=== PATIENT | female | born 1980 | race American Indian/Alaskan Native ===

== ENCOUNTER 2018-11-20 17:45 | Emergency (ER) | payer BC ==
--- NOTE | 2018-11-20 18:00 | Emergency Department Report ---
Blank Doc - Documentation Documentation: 38 y.o. female presents with abdominal cramping and nausea x 2-3 days. Last b owel movement 8 days ago. Patient states she feel constipated. There is nausea without vomiting. Report pain to rectal area without bleeding. Labs and CT of abdomen ordered Fast Track for evaluation
[2018-11-20 18:15] LABS: Basophils # (Auto) 0.1 K/mm3 (0.0-0.1); Eosinophils # (Auto) 0.2 K/mm3 (0.0-0.4); Hematocrit 34.1 % (30.3-42.9); Lymphocytes # (Auto) 2.8 K/mm3 (1.2-5.4); Lymphocytes % (Auto) 38.1 % (13.4-35.0); Mean Corpuscular HGB Conc 32 % (30-34); Mean Corpuscular Volume 88 fl (79-97); Monocytes # (Auto) 0.7 K/mm3 (0.0-0.8); Monocytes % (Auto) 9.5 % (0.0-7.3); Platelet Count 278 K/mm3 (140-440); Red Blood Count 3.89 M/mm3 (3.65-5.03); Red Cell Distribution Width 18.2 % (13.2-15.2)
[2018-11-20 18:35] LABS: Alanine Aminotransferase 17 units/L (7-56); Albumin 4.1 g/dL (3.9-5); BUN/Creatinine Ratio 13; Blood Urea Nitrogen 12 mg/dL (7-17); Calcium 8.8 mg/dL (8.4-10.2); Hemolysis Index 3
--- NOTE | 2018-11-20 19:44 | Cat Scan Report ---
FINAL REPORT PROCEDURE: CT ABDOMEN PELVIS WO CON TECHNIQUE: Computerized axial tomography of the abdomen and pelvis was performed without intravenous contrast. This study is performed without intravascular contrast material and its sensitivity for ab dominal and pelvic pathology, including neoplasms, inflammation, abscess, free fluid, thrombosis, art erial dissection and infarction, is reduced compared with a contrast enhanced study. HISTORY: abdominal pain r/o obstruction COMPARISON: No prior studies are available for comparison. FINDINGS: Lower Lung cole: No sinificant abnormality seen. Upper Abdomen: Gallbladder is surgically absent. Unenhanced images the liver show no focal abnormalit ies. The adrenal glands, the pancreas and spleen are unremarkable. Kidneys, Ureters and Urinary bladder: No abnormalities are seen. No evidence of hydronephrosis renal mass or calculi. No ureteral calculi are seen. Urinary bladder is unremarkable. Calcifications are se en in the lower pelvis which appear to represent phleboliths. Retroperitoneum: Abdominal aorta appears normal. Nonspecific subcentimeter lymph nodes are seen in the retroperitoneum. No pathologically enlarged lym ph nodes are identified. Bowel: Minimal diverticulosis seen left side of the colon without evidence of diverticulitis. No evid ence of bowel obstruction ascites or free intraperitoneal gas. Normal-appearing appendix is seen in t he right lower quadrant. Reproductive organs: Uterus and adnexa are unremarkable. Other: No acute bony abnormalities are seen IMPRESSION: Prior cholecystectomy. Minimal colonic diverticulosis without evidence of diverticulitis. No evidence of bowel obstruction. No acute abnormalities are identified..
--- NOTE | 2018-11-20 21:24 | Emergency Department Report ---
ED Abdominal Pain HPI - General Chief Complaint: Rectal Pain Stated Complaint: 8DAYS NO BOWEL MOVEMENT Time Seen by Provider: 11/20/18 17:55 Source: patient Mode of arrival: Ambulatory Limitations: No Limitations - History of Present Illness Initial Comments: 38-year-old -[place] female this emergency department complaining of abdominal pain for the last 2-3 days associated with some nausea but no vomiting. She reports being constipated for the last 8 days extracted a laxity of a couple days ago with minimal improvement. She has been able to pass gas. Reports no hemoptysis, hematemesis, no hematochezia. No fever, chills, sweats, chest pain, palpitations. MD Complaint: abdominal pain Location: diffuse Radiation: none Migration to: no migration Severity: mild Severity scale (0 -10): 8 Quality: dull Consistency: constant Improves With: nothing Worsens With: nothing Associated Symptoms: denies other symptoms, constipation - Related Data Previous Rx's Medication Instructions Recorded Last Taken Type Bisacodyl [Dulcolax suppos] 10 mg [place] QDAY #7 supp.rect 11/20/18 Unknown Rx Lactulose [Cephulac] 30 gm PO Q6HR #450 ml 11/20/18 Unknown Rx Sodium Phosphate,[place]-Dibasic 133 ml RC ONCE #1 enema 11/20/18 Unknown Rx [Fleet Enema] Allergies Allergy/AdvReac Type Severity Reaction Status Date / Time No Known Allergies Allergy Unverified 11/20/18 17:45 ED Review of Systems ROS: Stated complaint: 8DAYS NO BOWEL MOVEMENT Other details as noted in HPI Constitutional: denies: chills, fever Eyes: denies: eye pain, eye discharge, vision change ENT: denies: ear pain, throat pain Respiratory: denies: cough, shortness of breath, wheezing Cardiovascular: denies: chest pain, palpitations Endocrine: no symptoms reported Gastrointestinal: constipation. denies: abdominal pain, nausea, diarrhea Genitourinary: denies: urgency, dysuria, discharge Musculoskeletal: denies: back pain, joint swelling, arthralgia Skin: denies: rash, lesions Neurological: denies: headache, weakness, paresthesias Psychiatric: denies: anxiety, depression Hematological/Lymphatic: denies: easy bleeding, easy bruising ED Past Medical Hx - Social History Smoking Status: Current Every Day Smoker Substance Use Type: Alcohol - Medications Home Medications: Home Medications Medication Instructions Recorded Confirmed Last Taken Type Bisacodyl [Dulcolax suppos] 10 mg [place] QDAY #7 supp.rect 11/20/18 Unknown Rx Lactulose [Cephulac] 30 gm PO Q6HR #450 ml 11/20/18 Unknown Rx Sodium Phosphate,[place]-Dibasic 133 ml RC ONCE #1 enema 11/20/18 Unknown Rx [Fleet Enema] ED Physical Exam - General Limitations: No Limitations General appearance: alert, in no apparent distress - Head Head exam: Present: atraumatic, normocephalic - Eye Eye exam: Present: normal appearance, PERRL - ENT ENT exam: Present: normal exam, mucous membranes moist - Neck Neck exam: Present: normal inspection - Respiratory Respiratory exam: Present: normal lung sounds bilaterally. Absent: respiratory distress - Cardiovascular Cardiovascular Exam: Present: regular rate, normal rhythm. Absent: systolic murmur, diastolic murmur, rubs, gallop - GI/Abdominal GI/Abdominal exam: Present: soft, normal bowel sounds. Absent: distended, tenderness, guarding, rebound, bruit, pulsatile mass - Extremities Exam Extremities exam: Present: normal inspection - Back Exam Back exam: Present: normal inspection - Neurological Exam Neurological exam: Present: alert, oriented X3 - Psychiatric Psychiatric exam: Present: normal affect, normal mood - Skin Skin exam: Present: warm, dry, intact, normal color. Absent: rash ED Course Vital Signs 11/20/18 17:54 Temperature 98.4 F Pulse Rate 83 Respiratory 16 Rate Blood Pressure 149/93 O2 Sat by Pulse 100 Oximetry ED Medical Decision Making - Lab Data Result diagrams: 11/20/18 18:05 11/20/18 18:05 - Radiology Data Radiology results: report reviewed (CT scan abdomen is negative showing no obstructive processes.) - Medical Decision Making Discussed findings with Ms. Portillo of her CT scan and laboratory data. Significant constipation. Has one week ago with minimal improvement with 1 [id number] therapy. Plan is to try to resolve GI issues, multifactorial pathways to relieve the patient's symptomology. Advised follow-up with her primary care and GI within 48-72 hours, significantly to do so. Return to ER if symptoms are worsening. Critical care attestation.: If time is entered above; I have spent that time in minutes in the direct care of this critically ill patient, excluding procedure time. ED Disposition Clinical Impression: Constipation, Abdominal pain Disposition: DC-01 TO HOME OR SELFCARE Is pt being admited?: No Does the pt Need Aspirin: No Condition: Stable Instructions: Constipation (ED), High Fiber Diet (ED) Referrals: ISAIAH RICH DO [Primary Care Provider] - 3-5 Days
[2018-11-20] MEDS ORDERED: TORADOL ONE (21:25)
[2018-11-20] MEDS ORDERED: TORADOL IM ONE (21:25)
[2018-11-20 21:32] VITALS: BP 130/88
== END 2018-11-20 21:38 | disposition home or self-care (01) ==
LOC: ED 17:45
DX: K59.00 Constipation, unspecified (principal); F17.200 Nicotine dependence, unspecified, uncomplicated
CPT/HCPCS: 36415; 74176; 80053; 84703; 85025; 96372; 99283; J1885

== ENCOUNTER 2019-01-13 14:57 | Emergency (ER) | payer BC ==
[2019-01-13 15:04] VITALS: BP 172/87
[2019-01-13] MEDS ORDERED: TYLENOL PO ONE (15:06)
--- NOTE | 2019-01-13 15:09 | Emergency Department Report ---
Blank Doc - Documentation Documentation: 38 y o female presents with coughing, with uri sx states productive cough denies f/c/n/v/d/cp [facility] evaluate
--- NOTE | 2019-01-13 16:07 | XRay Report ---
PROCEDURE: XR CHEST ROUTINE 2V TECHNIQUE: PA and lateral views of the chest were obtained. HISTORY: Upper Respiratory Infection COMPARISONS: None FINDINGS: Lungs are clear. No infiltrates masses or effusions are seen. Heart size and pulmonary vasculature ap pear normal. No acute or focal bony abnormalities are identified. Surgical clips visualized right upp er quadrant. IMPRESSION: No evidence of acute cardiac pulmonary process. No infiltrates are seen.. This document is electronically signed by Eleazar Garber MD., January 13 2019 04:05:28 PM ET
[2019-01-13] MEDS ORDERED: DECADRON IM ONE (17:06)
--- NOTE | 2019-01-13 17:29 | Emergency Department Report ---
Minor Respiratory - HPI Chief Complaint: Upper Respiratory Infection Stated Complaint: EYES/NOSE/THROAT/MYERS/VOMIT BLOOD Time Seen by Provider: 01/13/19 15:05 Duration: 5 Days Pain Location: Facial, Throat, Nose, Other (EYES) Minor Respiratory: Yes Rhinorrhea, Yes Able to Tolerate Fluids, Yes Cough, Yes Shortness of Breath, No Sore Throat, No Ear Pain, No Sick Contacts, No Hemoptysis, No Chest Pain, No Fever Other History: H and believes she has allergic rhinitis however now she states she is coughing up bloody mucus and having no improvement of her symptoms despi te taking Claritin and Zyrtec ED Review of Systems ROS: Stated complaint: EYES/NOSE/THROAT/MYERS/VOMIT BLOOD Other details as noted in HPI Comment: All other systems reviewed and negative ED Past Medical Hx - Past Medical History Additional medical history: anemia - Surgical History Hx Cholecystectomy: Yes Hx Breast Surgery: Yes ([facility]) Additional Surgical History: C/Sx2, tube ligation - Social History Smoking Status: Current Every Day Smoker Substance Use Type: Alcohol - Medications Home Medications: Home Medications Medication Instructions Recorded Confirmed Last Taken Type Bisacodyl [Dulcolax suppos] 10 mg [place] QDAY #7 supp.rect 11/20/18 Unknown Rx Lactulose [Cephulac] 30 gm PO Q6HR #450 ml 11/20/18 Unknown Rx Sodium Phosphate,[place]-Dibasic 133 ml RC ONCE #1 enema 11/20/18 Unknown Rx [Fleet Enema] Olopatadine HCl [Patanol 0.1%] 1 drop OP BID #1 bottle 01/13/19 Unknown Rx Minor Respiratory Exam - Exam General: Vital signs noted. No distress. Alert and acting appropriately. HEENT: Yes Moist Mucous Membranes, Yes Conjuctival Injection, No Pharyngeal Erythema, No Pharyngeal Exudates, No Rhinorrhea, No Frontal Tenderness, No Maxillary Tenderness Ear: Neither TM Bulge, Neither TM Erythema, Neither EAC Pain, Neither EAC Discharge Neck: Yes Supple, No Adenopathy Lungs: Yes Good Air Exchange, Yes Cough, No Wheezes, No Ronchi, No Stridor, No Labored Respirations, No Retractions, No Use of Accessory Muscles, No Other Abnormal Lung Sounds Heart: Yes Regular, No Murmur Abdomen: Yes Normal Bowel Sounds, No Tenderness, No Peritoneal Signs Skin: No Rash, No Edema Neurologic: Alert and oriented, no deficits. Musculoskeletal: Unremarkable. ED Course Vital Signs 01/13/19 15:00 Temperature 98.2 F Pulse Rate 97 H Respiratory 17 Rate Blood Pressure 172/87 O2 Sat by Pulse 98 Oximetry ED Medical Decision Making - Medical Decision Making This patient is failed outpatient therapy regarding the allergic rhinitis patient will be given a Decadron shot and also prescription strength medication for her allergic conjunctivitis. Critical care attestation.: If time is entered above; I have spent that time in minutes in the direct care of this critically ill patient, excluding procedure time. ED Disposition Clinical Impression: Allergic rhinitis Qualifiers: Allergic rhinitis trigger: pollen Allergic rhinitis seasonality: seasonal Qualified Code(s): J30.1 - Allergic rhinitis due to pollen Allergic conjunctivitis Qualifiers: Laterality: bilateral Qualified Code(s): H10.13 - Acute atopic conjunctivitis, bilateral Disposition: DC- TO HOME OR SELFCARE Is pt being admited?: No Does the pt Need Aspirin: No Condition: Stable Instructions: Allergic Rhinitis (ED) Prescriptions: Olopatadine HCl [Patanol 0.1%] 1 drop OP BID #1 bottle Referrals: TRACY PALOMINO MD [Primary Care Provider] - 3-5 Days Time of Disposition: 17:29
== END 2019-01-13 17:45 | disposition home or self-care (01) ==
LOC: ED 14:57
DX: J30.1 Allergic rhinitis due to pollen (principal); H10.13 Acute atopic conjunctivitis, bilateral; F17.200 Nicotine dependence, unspecified, uncomplicated; Z90.49 Acquired absence of other specified parts of digestive tract; Z98.51 Tubal ligation status
CPT/HCPCS: 71046; 96372; 99283; J1100

== ENCOUNTER 2019-02-02 19:39 | Emergency (ER) | payer BC ==
[2019-02-02 20:42] VITALS: BP 144/99
[2019-02-02] MEDS ORDERED: TYLENOL PO ONE (23:36)
--- NOTE | 2019-02-03 01:20 | Emergency Department Report ---
ED General Adult HPI - General Chief complaint: Upper Respiratory Infection Stated complaint: THROAT/EYE PAIN/HEADACHE Time Seen by Provider: 02/03/19 01:10 Source: patient Mode of arrival: Ambulatory Limitations: No Limitations - History of Present Illness Initial comments: Pt is a 38 yo female who presents to the ED with c/o seasonal allergies symptoms that began two days ago. She has associated itchy/watery eyes, rhinorrhea, itchy throat, and CANTOR. She denies any fever or any other sx. Pt was evaluated in the ED two weeks ago for similar sx and was given steroid injection which she states cleared up her symptoms. She states that claritin no longer works for her. She has not tried zyrtec. THe patient has never seen an computer help desk specialist. She den ies any other PMHx or daily meds. Pt has not used flonase. Severity scale (0 -10): 8 - Related Data Previous Rx's Medication Instructions Recorded Last Taken Type Bisacodyl [Dulcolax suppos] 10 mg [place] QDAY #7 supp.rect 11/20/18 Unknown Rx Lactulose [Cephulac] 30 gm PO Q6HR #450 ml 11/20/18 Unknown Rx Sodium Phosphate,[place]-Dibasic 133 ml RC ONCE #1 enema 11/20/18 Unknown Rx [Fleet Enema] Olopatadine HCl [Patanol 0.1%] 1 drop OP BID #1 bottle 01/13/19 Unknown Rx Cetirizine HCl [ZyrTEC] 10 mg PO DAILY #30 tab.rapdis 02/03/19 Unknown Rx Fluticasone [Flonase] 1 spray NS QDAY #1 bottle 02/03/19 Unknown Rx Prednisone [predniSONE 10 mg 10 mg PO .TAPER #1 tab.ds.pk 02/03/19 Unknown Rx (6-Day Pack, 21 Tabs)] Allergies Allergy/AdvReac Type Severity Reaction Status Date / Time No Known Allergies Allergy Verified 02/02/19 20:19 ED Review of Systems ROS: Stated complaint: THROAT/EYE PAIN/HEADACHE Other details as noted in HPI Comment: All other systems reviewed and negative ED Past Medical Hx - Past Medical History Additional medical history: anemia - Surgical History Hx Cholecystectomy: Yes Hx Breast Surgery: Yes ([facility]) Additional Surgical History: C/Sx2, tube ligation - Social History Smoking Status: Current Every Day Smoker Substance Use Type: None - Medications Home Medications: Home Medications Medication Instructions Recorded Confirmed Last Taken Type Bisacodyl [Dulcolax suppos] 10 mg [place] QDAY #7 supp.rect 11/20/18 Unknown Rx Lactulose [Cephulac] 30 gm PO Q6HR #450 ml 11/20/18 Unknown Rx Sodium Phosphate,[place]-Dibasic 133 ml RC ONCE #1 enema 11/20/18 Unknown Rx [Fleet Enema] Olopatadine HCl [Patanol 0.1%] 1 drop OP BID #1 bottle 01/13/19 Unknown Rx Cetirizine HCl [ZyrTEC] 10 mg PO DAILY #30 tab.rapdis 02/03/19 Unknown Rx Fluticasone [Flonase] 1 spray NS QDAY #1 bottle 02/03/19 Unknown Rx Prednisone [predniSONE 10 mg 10 mg PO .TAPER #1 tab.ds.pk 02/03/19 Unknown Rx (6-Day Pack, 21 Tabs)] ED Physical Exam - General Limitations: No Limitations General appearance: alert, in no apparent distress - Head Head exam: Present: atraumatic, normocephalic - Eye Eye exam: Present: normal appearance, PERRL. Absent: conjunctival injection - ENT ENT exam: Present: normal orophraynx, mucous membranes moist, other (pale, boggy nasal turbinates) - Respiratory Respiratory exam: Present: normal lung sounds bilaterally. Absent: respiratory distress, wheezes, rales, rhonchi, stridor, chest wall tenderness, accessory muscle use, decreased breath sounds, prolonged expiratory - Cardiovascular Cardiovascular Exam: Present: regular rate, normal rhythm, normal heart sounds. Absent: systolic murmur, diastolic murmur, rubs, gallop - Neurological Exam Neurological exam: Present: alert, oriented X3 - Psychiatric Psychiatric exam: Present: normal affect, normal mood - Skin Skin exam: Present: warm, dry, intact ED Course Vital Signs 02/02/19 02/02/19 20:33 21:58 Temperature 98.1 F 98 F Pulse Rate 69 69 Respiratory 18 18 Rate Blood Pressure 144/99 144/99 O2 Sat by Pulse 99 99 Oximetry ED Medical Decision Making - Medical Decision Making Pt is a 38 yo female who presents to the ED with c/o seasonal allergies symptoms that began two days ago. She has associated itchy/watery eyes, rhinorrhea, itchy throat, and CANTOR. She denies any fever or any other sx. Pt was evaluated in the ED two weeks ago for similar sx and was given steroid injection which she states cleared up her symptoms. She states that claritin no longer works for her. She has not tried zyrtec. The patient has never seen an computer help desk specialist. She denies any other PMHx or daily meds. Pt has not used flonase. VSS. examination consistent with seasonal allergies and allergic rhinitis. Will give pt zyrtec, steroid pack, and flonase. Advised to follow up with primary care doctor in the next 2-3 days. Discussed to return to the emergency room for any new or worsening symptoms. - Differential Diagnosis seasonal allergies, allergic rhinitis, URI, viral syndrome Critical care attestation.: If time is entered above; I have spent that time in minutes in the direct care of this critically ill patient, excluding procedure time. ED Disposition Clinical Impression: Seasonal allergies Allergic rhinitis Qualifiers: Allergic rhinitis trigger: unspecified Allergic rhinitis seasonality: seasonal Qualified Code(s): J30.2 - Other seasonal allergic rhinitis Disposition: - TO HOME OR SELFCARE Is pt being admited?: No Does the pt Need Aspirin: No Condition: Stable Instructions: Allergic Rhinitis (ED), Allergies (ED) Additional Instructions: Please take all medication as prescribed. Please follow up with primary care doctor in the next 2-3 days. Return to the emergency room for any new or worsening symptoms. Prescriptions: Fluticasone [Flonase] 1 spray NS QDAY #1 bottle Prednisone [predniSONE 10 mg (6-Day Pack, 21 Tabs)] 10 mg PO .TAPER #1 tab.ds.pk Cetirizine HCl [ZyrTEC] 10 mg PO DAILY #30 tab.rapdis Referrals: [facility] [Primary Care Provider] - 2-3 Days Time of Disposition: 01:22 Print Language: MALTESE
== END 2019-02-03 01:35 | disposition home or self-care (01) ==
LOC: ED 19:39
DX: J30.9 Allergic rhinitis, unspecified (principal); J30.2 Other seasonal allergic rhinitis; D64.9 Anemia, unspecified; F17.200 Nicotine dependence, unspecified, uncomplicated; Z90.49 Acquired absence of other specified parts of digestive tract; Z98.890 Other specified postprocedural states; Z98.51 Tubal ligation status

== ENCOUNTER 2019-03-13 21:37 | Emergency (ER) | payer BC ==
[2019-03-13] MEDS ORDERED: TYLENOL ONE (22:44)
[2019-03-13 22:52] LABS: Basophils % (Auto) 0.6 % (0.0-1.8); Eosinophils # (Auto) 0.1 K/mm3 (0.0-0.4); Eosinophils % (Auto) 1.8 % (0.0-4.3); Hematocrit 30.3 % (30.3-42.9); Hemoglobin 10.5 gm/dl (10.1-14.3); Lymphocytes # (Auto) 1.3 K/mm3 (1.2-5.4); Lymphocytes % (Auto) 22.3 % (13.4-35.0); Mean Corpuscular HGB Conc 35 % (30-34); Mean Corpuscular Volume 87 fl (79-97); Monocytes # (Auto) 0.6 K/mm3 (0.0-0.8); Monocytes % (Auto) 11.1 % (0.0-7.3); Platelet Count 245 K/mm3 (140-440); Red Blood Count 3.48 M/mm3 (3.65-5.03); Red Cell Distribution Width 15.9 % (13.2-15.2)
[2019-03-13] MEDS ORDERED: KEPPRA 1,000 MG/NS 0.75% 100ML 1,000 MG/100 ML BAG IV ONE (23:07)
[2019-03-13 23:15] LABS: Alanine Aminotransferase 15 units/L (7-56); BUN/Creatinine Ratio 8; Blood Urea Nitrogen 8 mg/dL (7-17); Calcium 9.1 mg/dL (8.4-10.2); Hemolysis Index 5
[2019-03-14 00:14] LABS: HCG Qualitative,Urine Negative (Negative)
[2019-03-14 00:15] LABS: Bilirubin,Urine NEG (Negative); Blood,Urine NEG (Negative); Color,Urine Yellow (Yellow); Hyaline Casts,Urine 11 /LPF; Mucus,Urine 3+ /HPF; Urobilinogen,Urine < 2.0 mg/dL (<2.0)
[2019-03-14 00:19] LABS: Amphetamine Screen,Urine PRESUMPTIVE NEGATIVE; Benzodiazepines Screen,Urine PRESUMPTIVE NEGATIVE; Cocaine Screen,Urine PRESUMPTIVE NEGATIVE; Methadone Screen,Urine PRESUMPTIVE NEGATIVE; Opiate Screen,Urine PRESUMPTIVE NEGATIVE
[2019-03-14 00:45] LABS: Cannabinoid Screen,Urine PRESUMPTIVE POSITIVE
--- NOTE | 2019-03-14 01:03 | Emergency Department Report ---
ED Seizure HPI - General Chief Complaint: Seizure Stated Complaint: SEIZURE Time Seen by Provider: 03/13/19 22:48 Source: patient, EMS Mode of arrival: Stretcher Limitations: No Limitations - History of Present Illness Initial Comments: 38-year-old female with a past medical history of anemia presents to the hospital after having a seizure while getting her nails done. Patient states she had blurry vision and dizziness prior to seizure. She states that bystanders reported that she had a seizure. When she woke up she was diaphoretic and being fanned by bystanders. Patient denies tongue laceration but did have urinary incontinence. She denies a history of seizures or recent head injury. She has been taking diet pills intermittently 1 month more consistently for the last 3 days. Meds are GRN garcinia side effects online listed: headache, nausea, skin rash, cold symptoms, stomach upset, and hypoglycemia. The other med is GRN Clearance. She currently complains of 6/10 bitemporal headache. She denies nausea, vomiting, focal weakness, blurry vision has resolved. - Related Data Previous Rx's Medication Instructions Recorded Last Taken Type Bisacodyl [Dulcolax suppos] 10 mg VT QDAY #7 supp.rect 11/20/18 Unknown Rx Lactulose [Cephulac] 30 gm PO Q6HR #450 ml 11/20/18 Unknown Rx Sodium Phosphate,Fannin-Dibasic 133 ml RC ONCE #1 enema 11/20/18 Unknown Rx [Fleet Enema] Olopatadine HCl [Patanol 0.1%] 1 drop OP BID #1 bottle 01/13/19 Unknown Rx Cetirizine HCl [ZyrTEC] 10 mg PO DAILY #30 tab.rapdis 02/03/19 Unknown Rx Fluticasone [Flonase] 1 spray NS QDAY #1 bottle 02/03/19 Unknown Rx Prednisone [predniSONE 10 mg 10 mg PO .TAPER #1 tab.ds.pk 02/03/19 Unknown Rx (6-Day Pack, 21 Tabs)] levETIRAcetam [Keppra TAB] 500 mg PO BID #60 tablet 03/14/19 Unknown Rx Allergies Allergy/AdvReac Type Severity Reaction Status Date / Time No Known Allergies Allergy Verified 02/02/19 20:19 ED Review of Systems ROS: Stated complaint: SEIZURE Other details as noted in HPI Comment: All other systems reviewed and negative ED Past Medical Hx - Past Medical History Previous Medical History?: Yes Hx Seizures: Yes Additional medical history: anemia, low BP, - Surgical History Past Surgical History?: Yes Hx Cholecystectomy: Yes Hx Breast Surgery: Yes ([facility]) Additional Surgical History: C/Sx2, tube ligation - Social History Smoking Status: Current Every Day Smoker Substance Use Type: Alcohol - Medications Home Medications: Home Medications Medication Instructions Recorded Confirmed Last Taken Type Bisacodyl [Dulcolax suppos] 10 mg VT QDAY #7 supp.rect 11/20/18 Unknown Rx Lactulose [Cephulac] 30 gm PO Q6HR #450 ml 11/20/18 Unknown Rx Sodium Phosphate,Fannin-Dibasic 133 ml RC ONCE #1 enema 11/20/18 Unknown Rx [Fleet Enema] Olopatadine HCl [Patanol 0.1%] 1 drop OP BID #1 bottle 01/13/19 Unknown Rx Cetirizine HCl [ZyrTEC] 10 mg PO DAILY #30 tab.rapdis 02/03/19 Unknown Rx Fluticasone [Flonase] 1 spray NS QDAY #1 bottle 02/03/19 Unknown Rx Prednisone [predniSONE 10 mg 10 mg PO .TAPER #1 tab.ds.pk 02/03/19 Unknown Rx (6-Day Pack, 21 Tabs)] levETIRAcetam [Keppra TAB] 500 mg PO BID #60 tablet 03/14/19 Unknown Rx ED Physical Exam - General Limitations: No Limitations - Other Other exam information: General: No limitations, patient is alert in no acute distress Head exam: Atraumatic, normocephalic Eyes exam: Normal appearance, pupils equal reactive to light, extraocular movements intact ENT: Moist mucous membrane, normal oropharynx, no tongue laceration Neck exam: Normal inspection, full range of motion, no meningismus nontender Respiratory exam: Clear to auscultation bilateral, no wheezes, rales, crackles Cardiovascular: Normal rate and rhythm, normal heart sounds Abdomen: Soft, nondistended, and nontender, with normal bowel sounds, no rebound, or guarding Extremity: Full range of motion normal inspection no deformity Back: Normal Inspection, full range of motion, no tenderness Neurologic: Alert, oriented x3, cranial nerves intact, no motor or sensory deficit, [id number]-gikg-[id number] motion intact Psychiatric: normal affect, normal mood Skin: Warm, dry, intact ED Course Vital Signs 03/13/19 03/13/19 03/13/19 22:09 22:30 23:00 Temperature 98 F Pulse Rate 82 69 71 Respiratory 16 16 Rate Blood Pressure 102/68 108/60 105/66 O2 Sat by Pulse 99 99 99 Oximetry 03/13/19 03/13/19 03/14/19 23:34 23:45 00:00 Temperature Pulse Rate Respiratory Rate Blood Pressure 106/76 106/76 103/64 O2 Sat by Pulse 99 98 Oximetry 03/14/19 03/14/19 03/14/19 00:01 00:15 00:21 Temperature Pulse Rate Respiratory Rate Blood Pressure 103/64 106/76 106/76 O2 Sat by Pulse 98 98 98 Oximetry 03/14/19 03/14/19 03/14/19 00:47 01:00 01:15 Temperature Pulse Rate Respiratory Rate Blood Pressure 106/76 108/61 103/64 O2 Sat by Pulse 99 98 98 Oximetry 03/14/19 03/14/19 01:30 01:32 Temperature Pulse Rate 76 Respiratory Rate Blood Pressure 106/67 O2 Sat by Pulse 97 Oximetry ED Medical Decision Making - Lab Data Result diagrams: 03/13/19 22:20 03/13/19 22:20 Lab Results 03/13/19 03/13/19 03/13/19 Range/Units 22:20 22:20 22:20 WBC 5.7 (4.5-11.0) K/mm3 RBC 3.48 L (3.65-5.03) M/mm3 Hgb 10.5 (10.1-14.3) gm/dl Hct 30.3 (30.3-42.9) % MCV 87 (79-97) fl MCH 30 (28-32) pg MCHC 35 H (30-34) % RDW 15.9 H (13.2-15.2) % Plt Count 245 (140-440) K/mm3 Lymph % (Auto) 22.3 (13.4-35.0) % Fann[place] % (Auto) 11.1 H (0.0-7.3) % Eos % (Auto) 1.8 (0.0-4.3) % Baso % (Auto) 0.6 (0.0-1.8) % Lymph # 1.3 (1.2-5.4) K/mm3 [place] # 0.6 (0.0-0.8) K/mm3 Eos # 0.1 (0.0-0.4) K/mm3 Baso # 0.0 (0.0-0.1) K/mm3 Seg Neutrophils % 64.2 (40.0-70.0) % Seg Neutrophils # 3.6 (1.8-7.7) K/mm3 Sodium 139 (137-145) mmol/L Potassium 3.8 (3.6-5.0) mmol/L Chloride 103.2 (98-107) mmol/L Carbon Dioxide 23 (22-30) mmol/L Anion Gap 17 mmol/L BUN 8 (7-17) mg/dL Creatinine 1.0 (0.7-1.2) mg/dL Estimated GFR > 60 ml/min BUN/Creatinine Ratio 8 % Glucose 102 H (65-100) mg/dL Calcium 9.1 (8.4-10.2) mg/dL Magnesium (1.7-2.3) mg/dL Total Bilirubin 0.40 (0.1-1.2) mg/dL AST 23 (5-40) units/L ALT 15 (7-56) units/L Alkaline Phosphatase 24 L (35-129) units/L Total Creatine Kinase (30-135) units/L Total Protein 7.3 (6.3-8.2) g/dL Albumin 4.0 (3.9-5) g/dL Albumin/Globulin Ratio 1.2 % Urine Color (Yellow) Urine Turbidity (Clear) Urine pH (5.0-7.0) Ur Specific [place] (1.003-1.030) Urine Protein (Negative) mg/dL Urine Glucose (UA) (Negative) mg/dL Urine Ketones (Negative) mg/dL Urine Blood (Negative) Urine Nitrite (Negative) Ur Reducing Substances Urine Bilirubin (Negative) Urine Ictotest Urine Urobilinogen (<2.0) mg/dL Ur Leukocyte Esterase (Negative) Urine WBC (Auto) (0.0-6.0) /HPF Urine RBC (Auto) (0.0-6.0) /HPF U Epithel Cells (Auto) (0-13.0) /HPF Hyaline Casts /LPF Urine Mucus /HPF Urine HCG, Qual (Negative) Salicylates < 0.3 L (2.8-20.0) mg/dL Urine Opiates Screen Urine Methadone Screen Acetaminophen (10.0-30.0) ug/mL Ur Barbiturates Screen Phenytoin 1.6 L (10.0-20.0) ug/mL Valproic Acid < 2.8 L (50-100) ug/mL Carbamazepine 2.0 L (4-12) ug/mL Ur Phencyclidine Scrn Ur Amphetamines Screen U Benzodiazepines Scrn [place] 0.1 (0.0-1.2) mmol/L Urine Cocaine Screen U Marijuana (THC) Screen Drugs of Abuse Note Plasma/Serum Alcohol (0-0.07) % 03/13/19 03/13/19 03/13/19 Range/Units 22:20 22:20 22:20 WBC (4.5-11.0) K/mm3 RBC (3.65-5.03) M/mm3 Hgb (10.1-14.3) gm/dl Hct (30.3-42.9) % MCV (79-97) fl MCH (28-32) pg MCHC (30-34) % RDW (13.2-15.2) % Plt Count (140-440) K/mm3 Lymph % (Auto) (13.4-35.0) % [place]ann[place] % (Auto) (0.0-7.3) % Eos % (Auto) (0.0-4.3) % Baso % (Auto) (0.0-1.8) % Lymph # (1.2-5.4) K/mm3 F[place] # (0.0-0.8) K/mm3 Eos # (0.0-0.4) K/mm3 Baso # (0.0-0.1) K/mm3 Seg Neutrophils % (40.0-70.0) % Seg Neutrophils # (1.8-7.7) K/mm3 Sodium (137-145) mmol/L Potassium (3.6-5.0) mmol/L Chloride (98-107) mmol/L Carbon Dioxide (22-30) mmol/L Anion Gap mmol/L BUN (7-17) mg/dL Creatinine (0.7-1.2) mg/dL Estimated GFR ml/min BUN/Creatinine Ratio % Glucose (65-100) mg/dL Calcium (8.4-10.2) mg/dL Magnesium (1.7-2.3) mg/dL Total Bilirubin (0.1-1.2) mg/dL AST (5-40) units/L ALT (7-56) units/L Alkaline Phosphatase (35-129) units/L Total Creatine Kinase 160 H (30-135) units/L Total Protein (6.3-8.2) g/dL Albumin (3.9-5) g/dL Albumin/Globulin Ratio % Urine Color (Yellow) Urine Turbidity (Clear) Urine pH (5.0-7.0) Ur Specific [place] (1.003-1.030) Urine Protein (Negative) mg/dL Urine Glucose (UA) (Negative) mg/dL Urine Ketones (Negative) mg/dL Urine Blood (Negative) Urine Nitrite (Negative) Ur Reducing Substances Urine Bilirubin (Negative) Urine Ictotest Urine Urobilinogen (<2.0) mg/dL Ur Leukocyte Esterase (Negative) Urine WBC (Auto) (0.0-6.0) /HPF Urine RBC (Auto) (0.0-6.0) /HPF U Epithel Cells (Auto) (0-13.0) /HPF Hyaline Casts /LPF Urine Mucus /HPF Urine HCG, Qual (Negative) Salicylates (2.8-20.0) mg/dL Urine Opiates Screen Urine Methadone Screen Acetaminophen < 5.0 L (10.0-30.0) ug/mL Ur Barbiturates Screen Phenytoin (10.0-20.0) ug/mL Valproic Acid (50-100) ug/mL Carbamazepine (4-12) ug/mL Ur Phencyclidine Scrn Ur Amphetamines Screen U Benzodiazepines Scrn [place] (0.0-1.2) mmol/L Urine Cocaine Screen U Marijuana (THC) Screen Drugs of Abuse Note Plasma/Serum Alcohol < 0.01 (0-0.07) % 03/13/19 03/13/19 03/13/19 Range/Units 22:20 Unknown Unknown WBC (4.5-11.0) K/mm3 RBC (3.65-5.03) M/mm3 Hgb (10.1-14.3) gm/dl Hct (30.3-42.9) % MCV (79-97) fl MCH (28-32) pg MCHC (30-34) % RDW (13.2-15.2) % Plt Count (140-440) K/mm3 Lymph % (Auto) (13.4-35.0) % [place]ann[place] % (Auto) (0.0-7.3) % Eos % (Auto) (0.0-4.3) % Baso % (Auto) (0.0-1.8) % Lymph # (1.2-5.4) K/mm3 F[place] # (0.0-0.8) K/mm3 Eos # (0.0-0.4) K/mm3 Baso # (0.0-0.1) K/mm3 Seg Neutrophils % (40.0-70.0) % Seg Neutrophils # (1.8-7.7) K/mm3 Sodium (137-145) mmol/L Potassium (3.6-5.0) mmol/L Chloride (98-107) mmol/L Carbon Dioxide (22-30) mmol/L Anion Gap mmol/L BUN (7-17) mg/dL Creatinine (0.7-1.2) mg/dL Estimated GFR ml/min BUN/Creatinine Ratio % Glucose (65-100) mg/dL Calcium (8.4-10.2) mg/dL Magnesium 2.00 (1.7-2.3) mg/dL Total Bilirubin (0.1-1.2) mg/dL AST (5-40) units/L ALT (7-56) units/L Alkaline Phosphatase (35-129) units/L Total Creatine Kinase (30-135) units/L Total Protein (6.3-8.2) g/dL Albumin (3.9-5) g/dL Albumin/Globulin Ratio % Urine Color Yellow (Yellow) Urine Turbidity Slightly-cloudy (Clear) Urine pH 6.0 (5.0-7.0) Ur Specific [place] 1.021 (1.003-1.030) Urine Protein 100 mg/dl (Negative) mg/dL Urine Glucose (UA) Neg (Negative) mg/dL Urine Ketones Neg (Negative) mg/dL Urine Blood Neg (Negative) Urine Nitrite Neg (Negative) Ur Reducing Substances Not Reportable Urine Bilirubin Neg (Negative) Urine Ictotest Not Reportable Urine Urobilinogen < 2.0 (<2.0) mg/dL Ur Leukocyte Esterase Neg (Negative) Urine WBC (Auto) 8.0 H (0.0-6.0) /HPF Urine RBC (Auto) 2.0 (0.0-6.0) /HPF U Epithel Cells (Auto) 2.0 (0-13.0) /HPF Hyaline Casts 11 /LPF Urine Mucus 3+ /HPF Urine HCG, Qual Negative (Negative) Salicylates (2.8-20.0) mg/dL Urine Opiates Screen Presumptive negative Urine Methadone Screen Presumptive negative Acetaminophen (10.0-30.0) ug/mL Ur Barbiturates Screen Presumptive negative Phenytoin (10.0-20.0) ug/mL Valproic Acid (50-100) ug/mL Carbamazepine (4-12) ug/mL Ur Phencyclidine Scrn Presumptive negative Ur Amphetamines Screen Presumptive negative U Benzodiazepines Scrn Presumptive negative [place] (0.0-1.2) mmol/L Urine Cocaine Screen Presumptive negative U Marijuana (THC) Screen Presumptive positive Drugs of Abuse Note Disclamer Plasma/Serum Alcohol (0-0.07) % - Radiology Data Radiology results: report reviewed PROCEDURE: CT HEAD/BRAIN WO CON TECHNIQUE: Computerized tomography of the head was performed without contrast material. CT DOSE LENGTH PRODUCT: 920.5 mGycm HISTORY: new onset seizure COMPARISONS: None . FINDINGS: Skull and scalp: Normal . Paranasal sinuses: Normal . Ventricles and subarachnoid spaces: Normal . Cerebrum: No evidence of hemorrhage, acute infarction or mass . Cerebellum and brainstem: No evidence of hemorrhage, acute infarction or mass . Vasculature: Normal . IMPRESSION: Normal Examination . This document is electronically signed - Medical Decision Making Patient loaded with IV Keppra Labs were initially ordered by mid-level screener who ordered all the seizure medication levels. Patient is not on any seizure medication and so I suspected these levels to be 0. I will be discharged on Keppra and instructed not to drive until cleared by neurology. Informed to stop taking her current OTC diet medication since this is the only new medication and full side effect profile is unknown. - Differential Diagnosis seizure, electrolyte abnormality, intracranial hemorrhage/mass Critical Care Time: No Critical care attestation.: If time is entered above; I have spent that time in minutes in the direct care of this critically ill patient, excluding procedure time. ED Disposition Clinical Impression: New onset seizure Disposition: DC-01 TO HOME OR SELFCARE Is pt being admited?: No Does the pt Need Aspirin: No Condition: Stable Instructions: New-Onset Seizure in Adults (ED) Additional Instructions: Take the medication as prescribed. Follow up with your doctor or the clinic/doctor provided. Return if symptoms worsen as indicated by your discharge instructions. Stop your current [id number] diet pills since the full side effect profile is unknown. Do not drive until cleared by neurology. Prescriptions: levETIRAcetam [Keppra TAB] 500 mg PO BID #60 tablet Referrals: [facility] [Provider Group] - 3-5 Days TAI GALLOWAY MD [Staff Physician] - 3-5 Days (Neurologist) REYNOLD GALLEGOS MD [Staff Physician] - 3-5 Days (Neurologist) Time of Disposition: 02:05
--- NOTE | 2019-03-14 01:28 | Cat Scan Report ---
PROCEDURE: CT HEAD/BRAIN WO CON TECHNIQUE: Computerized tomography of the head was performed without contrast material. CT DOSE LENGTH PRODUCT: 920.5 mGycm HISTORY: new onset seizure COMPARISONS: None . FINDINGS: Skull and scalp: Normal . Paranasal sinuses: Normal . Ventricles and subarachnoid spaces: Normal . Cerebrum: No evidence of hemorrhage, acute infarction or mass . Cerebellum and brainstem: No evidence of hemorrhage, acute infarction or mass . Vasculature: Normal . IMPRESSION: Normal Examination . This document is electronically signed by Callum Rich MD., March 14 2019 02:26:42 AM ET
[2019-03-14 02:24] VITALS: BP 109/65
== END 2019-03-14 02:00 | disposition home or self-care (01) ==
LOC: ED 21:37
DX: R56.9 Unspecified convulsions (principal); F17.200 Nicotine dependence, unspecified, uncomplicated; Z90.49 Acquired absence of other specified parts of digestive tract; Z98.51 Tubal ligation status; Z79.899 Other long term (current) drug therapy
CPT/HCPCS: 36415; 70450; 80053; 80156; 80164; 80178; 80185; 80307; 81001; 81025; 82550; 83735; 85025; 96365; 99284; G0480; J1953; 80320

== ENCOUNTER 2021-04-06 20:17 | Emergency (ER) | payer BC, OTHER ==
[2021-04-06 21:20] VITALS: BP 135/87
[2021-04-06] MEDS ORDERED: HYDROcodone/ACETAMINOPHEN 10-325MG TAB PO ONE (22:24)
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
== END 2021-04-06 23:50 | disposition home or self-care (01) ==
LOC: ED 20:17
DX: S39.012A Strain of muscle, fascia and tendon of lower back, initial encounter (principal); S13.4XXA Sprain of ligaments of cervical spine, initial encounter; S00.03XA Contusion of scalp, initial encounter; F17.200 Nicotine dependence, unspecified, uncomplicated; D64.9 Anemia, unspecified; Z86.69 Personal history of other diseases of the nervous system and sense organs; Z90.49 Acquired absence of other specified parts of digestive tract; Z98.890 Other specified postprocedural states; Z98.51 Tubal ligation status; Z79.899 Other long term (current) drug therapy; V49.49XA Driver injured in collision with other motor vehicles in traffic accident, initial encounter; Y92.410 Unspecified street and highway as the place of occurrence of the external cause; Y93.89 Activity, other specified; Y99.8 Other external cause status
CPT/HCPCS: 70450; 72100; 72125

== ENCOUNTER 2022-06-25 20:34 | Emergency (ER) | payer BC | END 2022-06-25 21:00 | disposition left against medical advice (07) | LOC: ED 20:34 | DX: R07.89 Other chest pain (principal); R51.9 Headache, unspecified; Z53.21 Procedure and treatment not carried out due to patient leaving prior to being seen by health care provider ==